=== PATIENT | male | born 2000 | race Hispanic/Latino ===

== ENCOUNTER 2021-05-23 05:22 | Emergency (ER) | payer OTHER ==
[~2021-05-23] VITALS: Ht 175.3 cm; Wt 67.8 kg
[2021-05-23] MEDS ORDERED: GI COCKTAIL 50ML BTL(HYOSCYAMINE/MAALOX/LIDOCAINE VISCOUS)(1:3:1) PO ONE (07:35)
[2021-05-23] MEDS ORDERED: KETOROLAC 30 MG/ML 1ML VIAL IV ONE (07:35)
[2021-05-23] MEDS ORDERED: NS 1,000 ML IV ONE (07:35)
[2021-05-23 08:15] LABS: BASO % 0.4 % (0.0-1.0); EOS # 0.1 10^3/uL (0.0-0.5); HEMOGLOBIN 15.2 g/dl (13.5-17.5); LYMPH # 2.2 10^3/uL (1.5-5.0); MEAN CORPUSCULAR HEMOGLOBIN 30.6 pg (27.0-33.0); MEAN CORPUSCULAR HGB CONC 33.8 g/dl (32.0-36.5); MEAN CORPUSCULAR VOLUME 90.7 fl (80.0-96.0); MONO # 0.3 10^3/uL (0.0-0.8); NEUTROPHILS # 2.3 10^3/uL (1.5-8.5); NEUTROPHILS % 47.4 % (36.0-66.0); PLATELET COUNT, AUTOMATED 273 10^3/uL (150-450); RED BLOOD COUNT 4.96 10^6/uL (4.30-6.10); WHITE BLOOD COUNT 4.9 10^3/uL (4.0-10.0)
--- NOTE | 2021-05-23 08:20 | REP ---
INDICATION: CP. COMPARISON: None. TECHNIQUE: Single portable AP view of the chest was performed. FINDINGS: There is no acute infiltrate or pulmonary edema. Lungs are clear. The heart is not significantly enlarged. The mediastinal silhouette is unremarkable. The visualized osseous structures are intact. IMPRESSION: No acute pulmonary disease. <Electronically signed by Micah Elliott > 05/23/21 [id number]
[2021-05-23 09:02] LABS: CK-MB VALUE MASS 1.1 NG/ML (<3.6); CPK CREATINE PHOSPHOKINASE 143 U/L (39-308); MB/CK RELATIVE INDEX 0.77 (< OR =4); TROPONIN I < 0.02 NG/ML (< 0.10)
[2021-05-23] MEDS ORDERED: NAPR-837 PO (09:14)
[2021-05-23 09:24] VITALS: BP 113/57
--- NOTE | 2021-05-23 20:07 | ECGEPIP ---
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
== END 2021-05-23 09:30 | disposition home or self-care (01) ==
LOC: M ED 05:22
DX: R07.89 Other chest pain (principal); R06.02 Shortness of breath
CPT/HCPCS: 71045; 80047; 82550; 82553; 84484; 85025; 85379; 93005; 96361; 96374; 99284; J1885

== ENCOUNTER 2021-07-16 05:02 | Emergency (ER) | payer OTHER ==
[~2021-07-16] VITALS: Ht 175.3 cm; Wt 66.7 kg
[~2021-07-16 05:02] MED LIST: NAPR-837 PO
[2021-07-16 09:25] LABS: BASO % 0.4 % (0.0-1.0); EOS # 0.1 10^3/uL (0.0-0.5); EOS % 2.1 % (0.0-3.0); HEMATOCRIT 46.8 % (42.0-52.0); HEMOGLOBIN 15.9 g/dl (13.5-17.5); LYMPH # 2.3 10^3/uL (1.5-5.0); LYMPH % 34.6 % (24.0-44.0); MEAN CORPUSCULAR HEMOGLOBIN 30.1 pg (27.0-33.0); MEAN CORPUSCULAR VOLUME 88.6 fl (80.0-96.0); MONO # 0.7 10^3/uL (0.0-0.8); MONO % 10.8 % (2.0-8.0); NEUTROPHILS # 3.5 10^3/uL (1.5-8.5); NEUTROPHILS % 51.8 % (36.0-66.0); PLATELET COUNT, AUTOMATED 332 10^3/uL (150-450); RED BLOOD COUNT 5.28 10^6/uL (4.30-6.10); WHITE BLOOD COUNT 6.7 10^3/uL (4.0-10.0)
[2021-07-16 09:54] LABS: ALBUMIN 4.9 GM/DL (3.2-5.2); ALT/SGPT 21 U/L (12-78); BILIRUBIN,DIRECT 0.2 MG/DL (0.0-0.2); BILIRUBIN,TOTAL 0.8 MG/DL (0.2-1.0); BLOOD UREA NITROGEN 15 MG/DL (7-18); CALCIUM LEVEL 10.2 MG/DL (8.5-10.1); CARBON DIOXIDE LEVEL 25 MEQ/L (21-32); CHLORIDE LEVEL 105 MEQ/L (98-107); CREATININE FOR GFR 0.95 MG/DL (0.70-1.30); GLOMERULAR FILTRATION RATE > 60.0 (>60); GLUCOSE, FASTING 115 MG/DL (70-100); LIPASE 74 U/L (73-393); SODIUM LEVEL 139 MEQ/L (136-145); TOTAL PROTEIN 8.1 GM/DL (6.4-8.2)
[2021-07-16 10:41] LABS: RSV AMPLIFICATION NEGATIVE (NEGATIVE)
[2021-07-16 10:54] LABS: CK-MB VALUE MASS < 1.0 NG/ML (<3.6); CPK CREATINE PHOSPHOKINASE 92 U/L (39-308); MB/CK RELATIVE INDEX 1.09 (< OR =4); TROPONIN I < 0.02 NG/ML (< 0.10)
--- NOTE | 2021-07-16 11:17 | REP ---
INDICATION: chest pain. COMPARISON: 05/23/2021 TECHNIQUE: AP portable upright FINDINGS: Lungs are well inflated without infiltrate or effusion. The heart, mediastinal and hilar contours are normal. No pneumothorax,, pleural thickening, pleural based mass or pulmonary nodule. Heart, mediastinal and hilar contours are grossly normal. Bony thorax without acute finding. No free air under the diaphragm. IMPRESSION: Negative portable chest, no acute cardiopulmonary disease. Stable from 05/23/2021. <Electronically signed by Sean Mckeon > 07/16/21 1114
[2021-07-16] MEDS ORDERED: OMEP40CA4 PO (12:31)
[2021-07-16 13:30] VITALS: BP 104/64
--- NOTE | 2021-07-16 20:50 | ECGEPIP ---
[facility] - ED Test Date: 2021-07-16 Pat Name: GARRETT FERNANDES Department: Room: - Gender: Male [employer] L[employer]: CHAMP : 2000 Requested By: ALBA Alejandra Order Number: [id number] Reading MD: Chanel Smith Measurements Intervals [place] Rate: 69 P: 60 MN: 166 QRS: 92 QRSD: 106 T: 48 QT: 364 QTc: 390 Interpretive Statements Normal sinus rhythm Rightward axis Incomplete right bundle branch block similar 05/23/21 Electronically Signed on 07-16-2021 20:49:49 EDT by Chanel Smith
== END 2021-07-16 13:38 | disposition home or self-care (01) ==
LOC: M ED 05:02
DX: R07.89 Other chest pain (principal); Z79.899 Other long term (current) drug therapy

== ENCOUNTER 2021-08-16 21:44 | Emergency (ER) | payer OTHER ==
[~2021-08-16] VITALS: Ht 175.3 cm; Wt 67.1 kg
[~2021-08-16 21:44] MED LIST changes: +OMEP40CA4 PO
[2021-08-16 21:45] VITALS: BP 121/64
[2021-08-16] MEDS ORDERED: ACET500T15 PO (21:48)
== END 2021-08-17 03:19 | disposition left against medical advice (07) ==
LOC: M ED 21:44
DX: Z53.29 Procedure and treatment not carried out because of patient's decision for other reasons (principal)